=== PATIENT | male | born 1975 | race Caucasian/White ===

== ENCOUNTER 2016-10-10 06:31 | Emergency (ER) | payer OTHER ==
--- NOTE | 2016-10-10 07:14 | ED NURSING NOTES ---
Clinical Report - Nurses [facility] [address] [place] [address] 10/10/2016 6:31 Patient: JIMY DELACRUZ TRIAGE Triage time 06:39. Chief Complaint: (upper gum pain). Alert. No acute distress. --06:43 Oliva Decker R.N. 06:39 10/10/16. BP: 124/77. HR: 85. RR: 16. O2 saturation: 100%. Temp: 97.7 F (oral). Pain level now: 04/26. --06:43 Oliva Decker R.N. Weight: 106.5 kg stated. Height/Length: 74 inches Per Patient. BMI: 30.2. --06:40 Oliva Decker R.N. Medications None. --06:40 Oliva Decker R.N. Allergies No Known Drug Allergy. --06:40 Oliva Decker R.N. History Arrived by private vehicle. Historian: patient. Primary physician (None). This started yesterday. PAST MEDICAL HX: Immunizations: status is unknown. SOCIAL HX: Heavy tobacco smoker (cigarette)- 1 pack per day. History of drug use: methamphetamines. (last use 3 days ago). No alcohol use. --06:43 Oliva Decker R.N. ADDITIONAL SURGERIES: no known surgeries. PHYSICAL ASSESSMENT Ambulatory to room. GENERAL / NEURO / PSYCH: Alert. Oriented X 4. Appears in no acute distress. HEENT: Mucous membranes are pink. RESPIRATORY: Respirations not labored. CVS: Capillary refill less than 2 seconds. SKIN: Skin is warm and dry. --06:43 Oliva Decker R.N. NURSING PROGRESS NOTES Head of bed elevated. Two patient identifiers checked. Call light placed in reach. Side rails up x 1. Bed placed in lowest position. Brakes of bed on. --06:44 Oliva Decker R.N. Patient ready for evaluation- chart flagged. --06:44 Oliva Decker R.N. Reassurance given. Call light placed in reach. Care transferred and report received (Tess Baptiste). --07:44 Marilee Soto R.N. DISPOSITION / DISCHARGE Departure time: 0742 AM. Condition at departure: unchanged and stable. The goals identified in the patient's plan of care were met. No learning barriers present. Discharge instructions provided and reviewed with the patient. Reviewed medication(s) side effects, precautions, dosing and course information. Prescription(s) given to the patient. Reviewed referral to a dentist. The patient has no diet restrictions. He has no activity restrictions. Patient verbalized understanding. Written instructions provided in Polish. The patient was discharged by the physician. He was discharged home and unaccompanied at time of discharge. He left the Emergency Department ambulatory and via private vehicle. Patient driving. FALL RISK ASSESSMENT: Fall risk assessment completed. No fall risk identified. HOMERO COMA SCORE: [place] Coma Scale: 15- eyes open spontaneously (4); best verbal response- oriented x 4 (5); best motor response- obeys commands (6). --07:44 Marilee Soto R.N. 07:40 10/10/16. BP: 139/58. HR: 74. RR: 12. O2 saturation: 100% on room air. Temp: 98.8 F (oral). Pain level now: 12/25. --07:44 Marilee Soto R.N. Locked/Released at 10/10/2016 7:45 by Marilee Soto R.N.
--- NOTE | 2016-10-10 07:14 | ED CLINICAL REPORT ---
Clinical Report - Physicians/Mid Levels [facility] [address] [place] [address] 10/10/2016 6:31 Patient: JIMY DELACRUZ Time Seen: 06:38. Arrived- By private vehicle. Historian- patient. HISTORY OF PRESENT ILLNESS Chief Complaint: sore gums. This started several days ago and is still present and now worse. It was gradual in onset and has been constant. Pain described as severe. The patient has had severe toothache involving multiple teeth (right upper incisor, left upper incisor). Similar symptoms previously: None. REVIEW OF SYSTEMS No chills, fever, sweats, calf pain or chest pain. No cough, difficulty breathing, pedal edema, palpitations or abdominal pain. No constipation, diarrhea, nausea, vomiting or urinary problems. All systems otherwise negative, except as recorded above. SOCIAL HISTORY Current every day heavy tobacco smoker (cigarette)- 1 pack per day. History of drug use: methamphetamines. Recently used drugs days ago. FAMILY HISTORY No significant family medical history. ADDITIONAL NOTES The nursing notes have been reviewed. PHYSICAL EXAM Vital Signs: 10/10/2016 06:39 BP: 124/77. HR: 85. RR: 16. O2 saturation: 100%. Temp: 97.7 F. Pain level now: 8/10. Have been reviewed. Appearance: Alert. ENT: Ears normal. Nose normal. Upper gingiva: erythema, tenderness and swelling. Upper incisor(s): (tender and slightly loose). No trismus present. Neck: Normal inspection. Trachea midline. No adenopathy. Thyroid normal. Neck supple. CVS: Normal heart rate and rhythm. Heart sounds normal. Respiratory: Breath sounds normal. Abdomen: Soft and nontender. No organomegaly. Extremities: Extremities exhibit normal ROM. PROGRESS AND PROCEDURES Course of Care: Patient is stable. Patient/family counseled. Old medical records reviewed. Disposition: Discharged. Condition: stable. CLINICAL IMPRESSION Dental pain. Substance abuse- methamphetamines. Gingivitis. INSTRUCTIONS Drink plenty of fluids. Warnings: Further evaluation is necessary. GENERAL WARNINGS: Return or contact your physician immediately if your condition worsens or changes unexpectedly, if not improving as expected, or if other problems arise. Prescription Medications: Amoxicillin 500 mg tablets: Take 1 orally every 8 hours for 10 days. Dispense thirty (30). No refills. Follow-up: Follow up with a dentist today. Call for an appointment. Understanding of the discharge instructions verbalized by patient. (Electronically signed by Myles Potter MD 10/11/2016 10:10)
--- NOTE | 2016-10-10 07:14 | ED CLINICAL REPORT ---
Clinical Report - Physicians/Mid Levels [facility] [address] [place] [address] 10/10/2016 6:31 Patient: JIMY DELACRUZ Time Seen: 06:38. Arrived- By private vehicle. Historian- patient. HISTORY OF PRESENT ILLNESS Chief Complaint: sore gums. This started several days ago and is still present and now worse. It was gradual in onset and has been constant. Pain described as severe. The patient has had severe toothache involving multiple teeth (right upper incisor, left upper incisor). Similar symptoms previously: None. REVIEW OF SYSTEMS No chills, fever, sweats, calf pain or chest pain. No cough, difficulty breathing, pedal edema, palpitations or abdominal pain. No constipation, diarrhea, nausea, vomiting or urinary problems. All systems otherwise negative, except as recorded above. SOCIAL HISTORY Current every day heavy tobacco smoker (cigarette)- 1 pack per day. History of drug use: methamphetamines. Recently used drugs days ago. FAMILY HISTORY No significant family medical history. ADDITIONAL NOTES The nursing notes have been reviewed. PHYSICAL EXAM Vital Signs: 10/10/2016 06:39 BP: 124/77. HR: 85. RR: 16. O2 saturation: 100%. Temp: 97.7 F. Pain level now: 8/10. Have been reviewed. Appearance: Alert. ENT: Ears normal. Nose normal. Upper gingiva: erythema, tenderness and swelling. Upper incisor(s): (tender and slightly loose). No trismus present. Neck: Normal inspection. Trachea midline. No adenopathy. Thyroid normal. Neck supple. CVS: Normal heart rate and rhythm. Heart sounds normal. Respiratory: Breath sounds normal. Abdomen: Soft and nontender. No organomegaly. Extremities: Extremities exhibit normal ROM. PROGRESS AND PROCEDURES Course of Care: Patient is stable. Patient/family counseled. Old medical records reviewed. Disposition: Discharged. Condition: stable. CLINICAL IMPRESSION Dental pain. Substance abuse- methamphetamines. Gingivitis. INSTRUCTIONS Drink plenty of fluids. Warnings: Further evaluation is necessary. GENERAL WARNINGS: Return or contact your physician immediately if your condition worsens or changes unexpectedly, if not improving as expected, or if other problems arise. Prescription Medications: Amoxicillin 500 mg tablets: Take 1 orally every 8 hours for 10 days. Dispense thirty (30). No refills. Follow-up: Follow up with a dentist today. Call for an appointment. Understanding of the discharge instructions verbalized by patient. (Electronically signed by Mylse Potter MD 10/11/2016 10:10)
--- NOTE | 2016-10-10 07:14 | ED NURSING NOTES ---
Clinical Report - Nurses [facility] [address] [place] [address] 10/10/2016 6:31 Patient: JIMY DELACRUZ TRIAGE Triage time 06:39. Chief Complaint: (upper gum pain). Alert. No acute distress. --06:43 Oliva Decker R.N. 06:39 10/10/16. BP: 124/77. HR: 85. RR: 16. O2 saturation: 100%. Temp: 97.7 F (oral). Pain level now: 04/26. --06:43 Oliva Decker R.N. Weight: 106.5 kg stated. Height/Length: 74 inches Per Patient. BMI: 30.2. --06:40 Oliva Decker R.N. Medications None. --06:40 Oliva Decker R.N. Allergies No Known Drug Allergy. --06:40 Oliva Decker R.N. History Arrived by private vehicle. Historian: patient. Primary physician (None). This started yesterday. PAST MEDICAL HX: Immunizations: status is unknown. SOCIAL HX: Heavy tobacco smoker (cigarette)- 1 pack per day. History of drug use: methamphetamines. (last use 3 days ago). No alcohol use. --06:43 Oliva Decker R.N. ADDITIONAL SURGERIES: no known surgeries. PHYSICAL ASSESSMENT Ambulatory to room. GENERAL / NEURO / PSYCH: Alert. Oriented X 4. Appears in no acute distress. HEENT: Mucous membranes are pink. RESPIRATORY: Respirations not labored. CVS: Capillary refill less than 2 seconds. SKIN: Skin is warm and dry. --06:43 Oliva Decker R.N. NURSING PROGRESS NOTES Head of bed elevated. Two patient identifiers checked. Call light placed in reach. Side rails up x 1. Bed placed in lowest position. Brakes of bed on. --06:44 Oliva Decker R.N. Patient ready for evaluation- chart flagged. --06:44 Oliva Decker R.N. Reassurance given. Call light placed in reach. Care transferred and report received (Tess Baptiste). --07:44 Marilee Soto R.N. DISPOSITION / DISCHARGE Departure time: 0742 AM. Condition at departure: unchanged and stable. The goals identified in the patient's plan of care were met. No learning barriers present. Discharge instructions provided and reviewed with the patient. Reviewed medication(s) side effects, precautions, dosing and course information. Prescription(s) given to the patient. Reviewed referral to a dentist. The patient has no diet restrictions. He has no activity restrictions. Patient verbalized understanding. Written instructions provided in Yakut. The patient was discharged by the physician. He was discharged home and unaccompanied at time of discharge. He left the Emergency Department ambulatory and via private vehicle. Patient driving. FALL RISK ASSESSMENT: Fall risk assessment completed. No fall risk identified. HOMERO COMA SCORE: [place] Coma Scale: 15- eyes open spontaneously (4); best verbal response- oriented x 4 (5); best motor response- obeys commands (6). --07:44 Marilee Soto R.N. 07:40 10/10/16. BP: 139/58. HR: 74. RR: 12. O2 saturation: 100% on room air. Temp: 98.8 F (oral). Pain level now: 12/25. --07:44 Marilee Soto R.N. Locked/Released at 10/10/2016 7:45 by Marilee Soto R.N.
--- NOTE | 2016-10-11 10:11 | ED MAR SUMMARY ---
..... Medication Administration Record [facility] [address] [place] [address] Patient: JIMY DELACRUZ Visit ID: [id number] 40y, M Weight: 106.5 kg Height/Length: 74 in BMI: 30.2 ALLERGIES: No Known Drug Allergy
--- NOTE | 2016-10-11 10:11 | ED DISCHARGE INSTRUCTIONS ---
Patient: JIMY DELACRUZ General Instructions [facility] VisitID: [id number] [place] [address] 40y, M Registration Date/Time: 10/10/2016 Dental pain. Substance abuse- methamphetamines. Gingivitis. INSTRUCTIONS Drink plenty of fluids. Warnings: Further evaluation is necessary. GENERAL WARNINGS: Return or contact your physician immediately if your condition worsens or changes unexpectedly, if not improving as expected, or if other problems arise. Prescription Medications: Amoxicillin 500 mg tablets: Take 1 orally every 8 hours for 10 days. Dispense thirty (30). No refills. Follow-up: Follow up with a dentist today. Call for an appointment. Understanding of the discharge instructions verbalized by patient. ADDITIONAL INFORMATION Dental Pain A crack or cavity in the tooth, which exposes the sensitive inner area of the tooth can cause tooth pain. An infection in the gum or the root of the tooth can cause pain and swelling. The pain is often made worse by drinking hot or cold fluids, or biting on hard foods. Pain may spread from the tooth to the ear or jaw on the same side. Home Care: Avoid hot and cold foods and liquids since your tooth may be sensitive to temperature changes. If your tooth is chipped or cracked, or if there is a large open cavity, apply OIL OF CLOVES (available znyd-bin-olezzqj in drug stores) directly to the tooth to reduce pain. Some pharmacies carry an zdld-ohi-hgnqqma "toothache kit." This contains a paste, which can be applied over the exposed tooth to decrease sensitivity. A cold pack on your jaw over the sore area may help reduce pain. You may use acetaminophen (Tylenol) or ibuprofen (Motrin, Advil) to control pain, unless another medicine was prescribed. [ NOTE: If you have chronic liver or kidney disease or ever had a stomach ulcer or GI bleeding, talk with your doctor before using these medicines.] If you have signs of an infection, an antibiotic will be given. Take it as directed. Follow-Up as directed with a dentist. Your pain may go away with the treatment given. However, only a dentist can fully evaluate and treat the cause and prevent the pain from coming back again. TOOTHACHE IS A SIGN OF DISEASE IN YOUR TOOTH AND SHOULD BE EXAMINED AND TREATED BY A DENTIST. Get Prompt Medical Attention if any of the following occur: Your face becomes swollen or red Pain worsens or spreads to the neck Fever over 100.4 F (38.0 C) Unusual drowsiness; headache or stiff neck; weakness or fainting Pus drains from the tooth Difficulty swallowing or breathing Amoxicillin Trihydrate Oral tablet What is this medicine? AMOXICILLIN (a mox i KAUR in) is a penicillin antibiotic. It is used to treat certain kinds of bacterial infections. It will not work for colds, flu, or other viral infections. How should I use this medicine? Take this medicine by mouth with a glass of water. Follow the directions on your prescription label. You may take this medicine with food or on an empty stomach. Take your medicine at regular intervals. Do not take your medicine more often than directed. Take all of your medicine as directed even if you think your are better. Do not skip doses or stop your medicine early. Talk to your uptwist spinner regarding the use of this medicine in children. While this drug may be prescribed for selected conditions, precautions do apply. What side effects may I notice from receiving this medicine? Side effects that you should report to your doctor or health home health care case manager as soon as possible: allergic reactions like skin rash, itching or hives, swelling of the face, lips, or tongue breathing problems dark urine redness, blistering, peeling or loosening of the skin, including inside the mouth seizures severe or watery diarrhea trouble passing urine or change in the amount of urine unusual bleeding or bruising unusually weak or tired yellowing of the eyes or skin Side effects that usually do not require medical attention (report to your doctor or health home health care case manager if they continue or are bothersome): dizziness headache stomach upset trouble sleeping What may interact with this medicine? amiloride control pills chloramphenicol macrolides probenecid sulfonamides tetracyclines What if I miss a dose? If you miss a dose, take it as soon as you can. If it is almost time for your next dose, take only that dose. Do not take double or extra doses. Where should I keep my medicine? Keep out of the reach of children. Store between 68 and 77 degrees F (20 and 25 degrees C). Keep bottle closed tightly. Throw away any unused medicine after the expiration date. What should I tell my health care provider before I take this medicine? They need to know if you have any of these conditions: asthma kidney disease an unusual or allergic reaction to amoxicillin, other penicillins, cephalosporin antibiotics, other medicines, foods, dyes, or preservatives or trying to get breast-feeding What should I watch for while using this medicine? Tell your doctor or health home health care case manager if your symptoms do not improve in 2 or 3 days. Take all of the doses of your medicine as directed. Do not skip doses or stop your medicine early. If you are diabetic, you may get a false positive result for sugar in your urine with certain brands of urine tests. Check with your doctor. Do not treat diarrhea with ksgz-yve-mzxxwwl products. Contact your doctor if you have diarrhea that lasts more than 2 days or if the diarrhea is severe and watery. You have been given the following additional information: Dental Pain Amoxicillin Trihydrate Oral tablet (Electronically signed by Myles Potter MD 10/11/2016 10:10)
--- NOTE | 2016-10-11 10:11 | ED MED RECONCILIATION SUMMARY ---
Patient: JIMY DELACRUZ Medication Reconciliation Report [facility] VisitID: [id number] [address] [place] [address] 40y, M Registration Date/Time: 10/10/2016 Weight: 106.5 kg Height/Length: 74 in. BMI: 30.2 ALLERGIES: No Known Drug Allergy The patient's Home Medications are listed below: NONE. The source(s) of the original Home Medication information: Not obtained. The following Medications were given to the patient in the Emergency Department: None. The following Medications were prescribed to the patient: Amoxicillin 500 mg tablets: Take 1 orally every 8 hours for 10 days. Dispense thirty (30). No refills. -- Myles Potter MD
--- NOTE | 2016-10-11 10:11 | ED MAR SUMMARY ---
..... Medication Administration Record [facility] [address] [place] [address] Patient: JIMY DELACRUZ Visit ID: [id number] 40y, M Weight: 106.5 kg Height/Length: 74 in BMI: 30.2 ALLERGIES: No Known Drug Allergy
--- NOTE | 2016-10-11 10:11 | ED DISCHARGE INSTRUCTIONS ---
Patient: JIMY DELACRUZ General Instructions [facility] VisitID: [id number] [place] [address] 40y, M Registration Date/Time: 10/10/2016 Dental pain. Substance abuse- methamphetamines. Gingivitis. INSTRUCTIONS Drink plenty of fluids. Warnings: Further evaluation is necessary. GENERAL WARNINGS: Return or contact your physician immediately if your condition worsens or changes unexpectedly, if not improving as expected, or if other problems arise. Prescription Medications: Amoxicillin 500 mg tablets: Take 1 orally every 8 hours for 10 days. Dispense thirty (30). No refills. Follow-up: Follow up with a dentist today. Call for an appointment. Understanding of the discharge instructions verbalized by patient. ADDITIONAL INFORMATION Dental Pain A crack or cavity in the tooth, which exposes the sensitive inner area of the tooth can cause tooth pain. An infection in the gum or the root of the tooth can cause pain and swelling. The pain is often made worse by drinking hot or cold fluids, or biting on hard foods. Pain may spread from the tooth to the ear or jaw on the same side. Home Care: Avoid hot and cold foods and liquids since your tooth may be sensitive to temperature changes. If your tooth is chipped or cracked, or if there is a large open cavity, apply OIL OF CLOVES (available nkmc-cgq-whdddco in drug stores) directly to the tooth to reduce pain. Some pharmacies carry an dtup-mqf-tvtzvep "toothache kit." This contains a paste, which can be applied over the exposed tooth to decrease sensitivity. A cold pack on your jaw over the sore area may help reduce pain. You may use acetaminophen (Tylenol) or ibuprofen (Motrin, Advil) to control pain, unless another medicine was prescribed. [ NOTE: If you have chronic liver or kidney disease or ever had a stomach ulcer or GI bleeding, talk with your doctor before using these medicines.] If you have signs of an infection, an antibiotic will be given. Take it as directed. Follow-Up as directed with a dentist. Your pain may go away with the treatment given. However, only a dentist can fully evaluate and treat the cause and prevent the pain from coming back again. TOOTHACHE IS A SIGN OF DISEASE IN YOUR TOOTH AND SHOULD BE EXAMINED AND TREATED BY A DENTIST. Get Prompt Medical Attention if any of the following occur: Your face becomes swollen or red Pain worsens or spreads to the neck Fever over 100.4 F (38.0 C) Unusual drowsiness; headache or stiff neck; weakness or fainting Pus drains from the tooth Difficulty swallowing or breathing Amoxicillin Trihydrate Oral tablet What is this medicine? AMOXICILLIN (a mox i KAUR in) is a penicillin antibiotic. It is used to treat certain kinds of bacterial infections. It will not work for colds, flu, or other viral infections. How should I use this medicine? Take this medicine by mouth with a glass of water. Follow the directions on your prescription label. You may take this medicine with food or on an empty stomach. Take your medicine at regular intervals. Do not take your medicine more often than directed. Take all of your medicine as directed even if you think your are better. Do not skip doses or stop your medicine early. Talk to your supervisor/port director regarding the use of this medicine in children. While this drug may be prescribed for selected conditions, precautions do apply. What side effects may I notice from receiving this medicine? Side effects that you should report to your doctor or health senior care manager as soon as possible: allergic reactions like skin rash, itching or hives, swelling of the face, lips, or tongue breathing problems dark urine redness, blistering, peeling or loosening of the skin, including inside the mouth seizures severe or watery diarrhea trouble passing urine or change in the amount of urine unusual bleeding or bruising unusually weak or tired yellowing of the eyes or skin Side effects that usually do not require medical attention (report to your doctor or health senior care manager if they continue or are bothersome): dizziness headache stomach upset trouble sleeping What may interact with this medicine? amiloride control pills chloramphenicol macrolides probenecid sulfonamides tetracyclines What if I miss a dose? If you miss a dose, take it as soon as you can. If it is almost time for your next dose, take only that dose. Do not take double or extra doses. Where should I keep my medicine? Keep out of the reach of children. Store between 68 and 77 degrees F (20 and 25 degrees C). Keep bottle closed tightly. Throw away any unused medicine after the expiration date. What should I tell my health care provider before I take this medicine? They need to know if you have any of these conditions: asthma kidney disease an unusual or allergic reaction to amoxicillin, other penicillins, cephalosporin antibiotics, other medicines, foods, dyes, or preservatives or trying to get breast-feeding What should I watch for while using this medicine? Tell your doctor or health senior care manager if your symptoms do not improve in 2 or 3 days. Take all of the doses of your medicine as directed. Do not skip doses or stop your medicine early. If you are diabetic, you may get a false positive result for sugar in your urine with certain brands of urine tests. Check with your doctor. Do not treat diarrhea with ztqn-lvr-mvhumyu products. Contact your doctor if you have diarrhea that lasts more than 2 days or if the diarrhea is severe and watery. You have been given the following additional information: Dental Pain Amoxicillin Trihydrate Oral tablet (Electronically signed by Myles Potter MD 10/11/2016 10:10)
--- NOTE | 2016-10-11 10:11 | ED MED RECONCILIATION SUMMARY ---
Patient: JIMY DELACRUZ Medication Reconciliation Report [facility] VisitID: [id number] [address] [place] [address] 40y, M Registration Date/Time: 10/10/2016 Weight: 106.5 kg Height/Length: 74 in. BMI: 30.2 ALLERGIES: No Known Drug Allergy The patient's Home Medications are listed below: NONE. The source(s) of the original Home Medication information: Not obtained. The following Medications were given to the patient in the Emergency Department: None. The following Medications were prescribed to the patient: Amoxicillin 500 mg tablets: Take 1 orally every 8 hours for 10 days. Dispense thirty (30). No refills. -- Myles Potter MD
== END 2016-10-10 07:42 | disposition home or self-care (01) ==
LOC: ED SRH 06:31
DX: K05.00 Acute gingivitis, plaque induced (principal); F15.10 Other stimulant abuse, uncomplicated; F17.210 Nicotine dependence, cigarettes, uncomplicated